=== PATIENT | female | born 1985 | race Caucasian/White ===

== ENCOUNTER 2021-08-22 01:13 | Inpatient (IN) | payer OTHER ==
[2021-08-22 01:36] VITALS: BMI 37.3
[2021-08-22 03:52] LABS: #Neutrophils 7.9 10x3/uL (1.5-8.4); %Basophils 0.3 % (0.0-2.0); %Eosinophils 0.4 % (0.0-6.0); %Lymphocytes 14.2 % (18.0-47.0); %Monocytes 9.3 % (0.0-10.0); Hemoglobin 11.4 g/dL (12.0-15.5); Mean Corpuscular HGB CONC 32.5 g/dL (32.0-36.0); Mean Corpuscular Hemoglobin 28.5 pg (27.0-33.0); Mean Corpuscular Volume 87.8 fl (81.6-98.3); Mean Platelet Volume 12.5 fl (7.4-10.4); Platelet Count 170 10x3/uL (150-450); RBC Distribution Width 13.7 % (11.5-14.5); White Blood Cell (WBC) Count 10.5 10x3/uL (3.5-10.5)
[2021-08-22] MEDS ORDERED: NS w/ Oxytocin 30 units 500 ML IV SCH (04:00)
[2021-08-22] MEDS ORDERED: Ondansetron PF 4 MG/2 ML Vial IVP PRN ×3 (04:00→12:41)
[2021-08-22] MEDS ORDERED: NS w/ Oxytocin 30 units 500 ML IVPB SCH (04:00)
[2021-08-22] MEDS ORDERED: Penicillin G Potassium 5 MILL.UNITS in Sodium Chloride 0.9% 100 ML IVPB SCH (04:00)
[2021-08-22] MEDS ORDERED: hydrALAZINE 20 MG/ML VIAL SLOW IVP PRN ×2 (04:00→12:41)
[2021-08-22] MEDS ORDERED: Lidocaine 1% (PF) 30 ML VIAL SC PRN (04:00)
[2021-08-22] MEDS ORDERED: Promethazine HCl 25 MG/ML VIAL IM PRN ×2 (04:00→05:46)
[2021-08-22] MEDS ORDERED: Butorphanol Tartrate 1 MG/ML VIAL SLOW IVP PRN (04:00)
[2021-08-22] MEDS ORDERED: Acetaminophen 500 MG TAB PO PRN (04:00)
[2021-08-22] MEDS ORDERED: HYDROcodone/Acetaminophen 5/325 mg Tablet PO PRN ×3 (04:00→12:41)
[2021-08-22] MEDS ORDERED: Ibuprofen 800 MG TAB PO PRN (04:00)
[2021-08-22 04:18] LABS: HIV (1/2) Antibody/Antigen Non-Reactive (NonReactive); HIV 1/2 INDEX 0.08 S/CO (<1.00); Hep B Surf Ag Non-Reactive S/CO (NonReactive)
[2021-08-22 04:19] LABS: Syphilis Antibody Nonreactive (Nonreactive); Syphilis Antibody Index 0.04 S/CO (<1.00 Non-Reactive)
[2021-08-22 04:21] LABS: HBSAg Index 0.18 S/CO (0-0.99)
[2021-08-22] MEDS ORDERED: Fentanyl 2 mcg/Bup 0.1% Cadd 100 ML ONE (04:21)
[2021-08-22 04:57] LABS: SARS-CoV-2 NAA Rapid Test Not Detected (NotDetected)
[2021-08-22] MEDS ORDERED: diphenhydrAMINE 50 MG/ML VIAL IVP PRN (05:46)
[2021-08-22] MEDS ORDERED: Lactated Ringer's 500 ML IV PRN (05:46)
[2021-08-22] MEDS ORDERED: Naloxone HCl 0.4 mg/ml Vial IVP PRN ×2 (05:46)
[2021-08-22] MEDS ORDERED: ePHEDrine Sulfate 50 MG/10 ML VIAL SLOW IVP PRN (05:46)
[2021-08-22] MEDS ORDERED: Hydrocerin (Eucerin) Cream 120 gm Jar TOP PRN (05:46)
[2021-08-22] MEDS ORDERED: Acetaminophen 325 MG TAB PO PRN (05:46)
[2021-08-22] MEDS ORDERED: Fentanyl 2 mcg/Bupivacaine 0.1% Cassette 100 ML EPIDURAL SCH (06:00)
[2021-08-22] MEDS ORDERED: Communication Order-Pharmacy FS SCH (06:00)
[2021-08-22] MEDS ORDERED: Bupivacaine/Epinephrine 0.25% 30 ML VIAL ONE (06:00)
[2021-08-22] MEDS: Lactated Ringer's 1,000 ML IV SCH ×2 (06:34→10:25)
[2021-08-22] MEDS ORDERED: Penicillin G 2.5 MILL.units 50 ML IVPB SCH (09:00)
[2021-08-22] MEDS ORDERED: NS w/ Oxytocin 30 units 500 ML ONE (11:13)
[2021-08-22] MEDS ORDERED: Preparation H Ointment 28 GM TUBE PR PRN (12:41)
[2021-08-22] MEDS ORDERED: Lanolin Ointment 7 GM TUBE TOP PRN (12:41)
[2021-08-22] MEDS ORDERED: Bisacodyl 10 MG SUPP PR PRN (12:41)
[2021-08-22] MEDS ORDERED: diphenhydrAMINE 25 MG CAP PO PRN (12:41)
[2021-08-22] MEDS ORDERED: Benzocaine-Menthol 82.5 ML CAN TOP PRN (12:41)
[2021-08-22] MEDS ORDERED: Milk Of Magnesia 30 ML UDCUP PO PRN (12:41)
[2021-08-22] MEDS: Ibuprofen 800 MG TAB PO SCH ×2 (15:01→21:57)
[2021-08-22] MEDS: Ferrous Sulfate 325 MG TAB PO SCH (20:05)
[2021-08-22] MEDS: Docusate 100 MG CAP PO SCH (21:57)
[2021-08-23] MEDS: Ibuprofen 800 MG TAB PO SCH (04:59)
[2021-08-23 08:14] VITALS: TEMP 98.6
[2021-08-23] MEDS: Ferrous Sulfate 325 MG TAB PO SCH (08:25)
[2021-08-23] MEDS: Docusate 100 MG CAP PO SCH (08:25)
[2021-08-23] MEDS ORDERED: Prenatal Vitamin 1 TAB PO SCH (09:00)
[2021-08-23 11:42] VITALS: BP 92/55
[2021-08-23] MEDS ORDERED: Boostrix 0.5 ML (Tdap) VIAL IM ONE (12:41)
== END 2021-08-23 13:58 | disposition home or self-care (01) | DRG 807 ==
LOC: CSHLD/OP 01:13 → CSHLD 03:41 → CSHPP 13:10
PROVIDERS: ADMIT Student in an Organized Health Care Education/Training Program; ATTEND Student in an Organized Health Care Education/Training Program
PROC: 10E0XZZ Delivery of Products of Conception, External Approach (ICD-10-PCS; principal; 2021-08-22)
PROC: 10907ZC Drainage of Amniotic Fluid, Therapeutic from Products of Conception, Via Natural or Artificial Opening (ICD-10-PCS; 2021-08-22)
PROC: 0HQ9XZZ Repair Perineum Skin, External Approach (ICD-10-PCS; 2021-08-22)
DX: O99.824 Streptococcus B carrier state complicating childbirth (principal); Z37.0 Single live birth; Z3A.40 40 weeks gestation of pregnancy; O70.0 First degree perineal laceration during delivery; Z20.822 Contact with and (suspected) exposure to COVID-19
CPT/HCPCS: 36415; 51702; 86780; 86850; 86900; 86901; 87340; 87389; 99285; J2540; J2590; J3490; J7120; U0002

== ENCOUNTER 2023-07-10 10:41 | Inpatient (IN) | payer BC ==
[2023-07-10 11:27] VITALS: BMI 37.2
[2023-07-10 11:34] LABS: Fetal Membranes Rupture RUPTURE DETECTED (No Rupture)
[2023-07-10] MEDS ORDERED: hydrALAZINE 20 MG/ML VIAL SLOW IVP PRN ×2 (11:40→12:24)
[2023-07-10] MEDS ORDERED: Misoprostol 200 MCG TAB PR PRN (12:24)
[2023-07-10] MEDS ORDERED: Carboprost 250 MCG/ML AMP IM PRN (12:24)
[2023-07-10] MEDS ORDERED: Diphenoxylate HCl/Atropine Tablet PO PRN (12:24)
[2023-07-10] MEDS ORDERED: Ondansetron PF 4 MG/2 ML Vial IVP PRN ×2 (12:24→14:21)
[2023-07-10] MEDS ORDERED: Ibuprofen 800 MG TAB PO PRN (12:24)
[2023-07-10] MEDS ORDERED: Methylergonovine 0.2 MG/ML VIAL IM PRN (12:24)
[2023-07-10] MEDS ORDERED: fentaNYL 50 mcg/mL 1 mL Vial SLOW IVP PRN (12:24)
[2023-07-10] MEDS ORDERED: Promethazine HCl 25 MG/ML VIAL IM PRN ×2 (12:24→14:21)
[2023-07-10] MEDS ORDERED: Acetaminophen 500 MG TAB PO PRN (12:24)
[2023-07-10] MEDS ORDERED: HYDROcodone/Acetaminophen 5/325 mg Tablet PO PRN (12:24)
[2023-07-10] MEDS ORDERED: Lidocaine 1% (PF) 30 ML VIAL SC PRN (12:24)
[2023-07-10] MEDS ORDERED: Lactated Ringer's 1,000 ML IV SCH (12:30)
[2023-07-10] MEDS ORDERED: Penicillin G Potassium 5 MILL.UNITS in Sodium Chloride 0.9% 100 ML IVPB SCH (12:30)
[2023-07-10] MEDS ORDERED: Oxytocin 30 units/NS 500 ML 500 ML IV SCH ×2 (12:30)
[2023-07-10 13:03] LABS: Hematocrit 40.4 % (34.9-44.5); Hemoglobin 12.9 g/dL (12.0-15.5); Mean Corpuscular HGB CONC 31.9 g/dL (32.0-36.0); Mean Corpuscular Hemoglobin 26.9 pg (27.0-33.0); Mean Corpuscular Volume 84.2 fl (81.6-98.3); Mean Platelet Volume 12.6 fl (7.4-10.4); Platelet Count 230 10x3/uL (150-450); RBC Distribution Width 14.7 % (11.5-14.5); White Blood Cell (WBC) Count 10.5 10x3/uL (3.5-10.5)
[2023-07-10] MEDS ORDERED: fentaNYL/Ropivacaine Epidural 100 ML ONE (13:32)
[2023-07-10 13:38] LABS: Syphilis Antibody Nonreactive (Nonreactive); Syphilis Antibody Index 0.04 S/CO (<1.00 Non-Reactive)
[2023-07-10 13:40] LABS: HBSAg Index 0.15 S/CO (0-0.99); Hep B Surf Ag - L&D Non-Reactive S/CO (NonReactive)
[2023-07-10] MEDS ORDERED: Acetaminophen 325 MG TAB PO PRN (14:21)
[2023-07-10] MEDS ORDERED: Lactated Ringer's 500 ML IV PRN (14:21)
[2023-07-10] MEDS ORDERED: ePHEDrine Sulfate 50 MG/10 ML VIAL SLOW IVP PRN (14:21)
[2023-07-10] MEDS ORDERED: Naloxone HCl 0.4 mg/ml Vial IVP PRN ×2 (14:21)
[2023-07-10] MEDS ORDERED: Moisturizing Cream (Eucerin) 113 GM JAR TOP PRN (14:21)
[2023-07-10] MEDS ORDERED: diphenhydrAMINE 50 MG/ML VIAL IVP PRN (14:21)
[2023-07-10] MEDS ORDERED: fentaNYL 2 mcg/Ropivacaine 0.2% Epidural 100 ML CADD EPIDURAL SCH (14:30)
[2023-07-10] MEDS ORDERED: Communication Order-Pharmacy FS SCH (14:30)
[2023-07-10] MEDS ORDERED: PHENYLEPHRINE-NS 100 MCG/ML 10 ML SYRINGE ONE (15:53)
[2023-07-10] MEDS: Penicillin G 2.5 MILL.units 2.5 MILL.UNITS in Premix 1 BAG IVPB SCH ×2 (16:14→20:42)
[2023-07-11] MEDS ORDERED: diphenhydrAMINE 25 MG CAP PO PRN (02:16)
[2023-07-11] MEDS ORDERED: Benzocaine-Menthol 82.5 ML CAN TOP PRN (02:16)
[2023-07-11] MEDS ORDERED: Preparation H Ointment 28 GM TUBE PR PRN (02:16)
[2023-07-11] MEDS ORDERED: Milk Of Magnesia 30 ML UDCUP PO PRN (02:16)
[2023-07-11] MEDS ORDERED: Boostrix 0.5 ML (Tdap) VIAL (>/=7 yrs of age) IM ONE (02:16)
[2023-07-11] MEDS ORDERED: hydrALAZINE 20 MG/ML VIAL SLOW IVP PRN (02:16)
[2023-07-11] MEDS ORDERED: Lanolin Ointment 7 GM TUBE TOP PRN (02:16)
[2023-07-11] MEDS ORDERED: Bisacodyl 10 MG SUPP PR PRN (02:16)
[2023-07-11] MEDS: Acetaminophen 500 MG TAB PO SCH ×4 (06:04→23:34)
[2023-07-11] MEDS: Prenatal Vitamin 1 TAB PO SCH (08:27)
[2023-07-11] MEDS: Docusate 100 MG CAP PO SCH ×2 (08:27→23:33)
[2023-07-11] MEDS: Ibuprofen 800 MG TAB PO SCH ×3 (08:27→23:34)
[2023-07-11] MEDS: Ferrous Sulfate 325 MG TAB PO SCH ×2 (08:30→16:01)
[2023-07-11] MEDS: Penicillin G 2.5 MILL.units 2.5 MILL.UNITS in Premix 1 BAG IVPB SCH ×2 (14:20→14:21)
[2023-07-11] MEDS ORDERED: ePHEDrine Sulfate 50 MG/10 ML VIAL ONE (16:02)
[2023-07-11] MEDS ORDERED: Bupivacaine 0.25% HCL 30 ML VIAL ONE (16:02)
[2023-07-12] MEDS: Ferrous Sulfate 325 MG TAB PO SCH (07:29)
[2023-07-12] MEDS: Ibuprofen 800 MG TAB PO SCH (08:31)
[2023-07-12] MEDS: Acetaminophen 500 MG TAB PO SCH ×2 (08:32→12:53)
[2023-07-12] MEDS: Docusate 100 MG CAP PO SCH (08:33)
[2023-07-12] MEDS: Prenatal Vitamin 1 TAB PO SCH (08:33)
[2023-07-12 12:13] VITALS: TEMP 98.2
[2023-07-12 12:14] VITALS: BP 109/73
== END 2023-07-12 13:33 | disposition home or self-care (01) | DRG 807 ==
LOC: CSHLD/OP 10:41 → CSHLD 12:18 → CSHPP 07-11 00:20
PROVIDERS: ADMIT Student in an Organized Health Care Education/Training Program; ATTEND Student in an Organized Health Care Education/Training Program
PROC: 10E0XZZ Delivery of Products of Conception, External Approach (ICD-10-PCS; principal; 2023-07-10)
PROC: 0KQM0ZZ Repair Perineum Muscle, Open Approach (ICD-10-PCS; 2023-07-10)
DX: O42.02 Full-term premature rupture of membranes, onset of labor within 24 hours of rupture (principal); Z37.0 Single live birth; O69.81X0 Labor and delivery complicated by cord around neck, without compression, not applicable or unspecified; Z3A.38 38 weeks gestation of pregnancy; O70.1 Second degree perineal laceration during delivery; O99.824 Streptococcus B carrier state complicating childbirth
CPT/HCPCS: 36415; 84112; 85027; 86780; 86850; 86900; 86901; 87340; J2540; J2590; J3490; S0020

== ENCOUNTER 2023-07-14 09:53 | Emergency (ER) | payer BC | END 2023-07-14 13:26 | disposition admitted as inpatient to this hospital (09) | LOC: CSHERS 09:53 | DX: O89.4 Spinal and epidural anesthesia-induced headache during the puerperium (principal) | CPT/HCPCS: 99285 ==